=== PATIENT | male | born 2000 | race Asian ===

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

== ENCOUNTER 2023-11-17 16:22 | Emergency (ER) | payer MEDICAID ==
[~2023-11-17] VITALS: Ht 167.6 cm; Wt 95.5 kg
[2023-11-17] MEDS ORDERED: CEFD300C3 PO (18:35)
[2023-11-17 18:42] VITALS: BP 135/91; PULSE 99; RESP 16; TEMP 98.6; O2SAT 97
== END 2023-11-17 18:44 | disposition home or self-care (01) ==
LOC: ER 16:23
DX: J02.9 Acute pharyngitis, unspecified (principal); Z20.822 Contact with and (suspected) exposure to COVID-19
CPT/HCPCS: 36415; 87502; 87503; 87811; 99283